=== PATIENT | male | born 1960 | race Caucasian/White ===

== ENCOUNTER 2017-01-15 11:52 | Inpatient (IN) | payer MEDICAID ==
[~2017-01-15] VITALS: Ht 175.3 cm; Wt 107.2 kg
[~2017-01-15 11:52] MED LIST: CIPR500T87; CLON-275; CLON-365; HYDR1TAB; LISI-167; LISI-167 PO; PROP40TA; [UNRECOGNIZED DRUG - CODE]; [UNRECOGNIZED DRUG - REMARK] PO
[2017-01-15] MEDS ORDERED: SODIUM CHLORIDE 0.9% 1,000ML IVBOLUS ONE ×2 (12:30→14:00)
[2017-01-15] MEDS ORDERED: THIAMINE 100 MG in SODIUM CHLORIDE 0.9% 50 ML IVPB ONE (12:30)
[2017-01-15 12:36] LABS: BLOOD UREA NITROGEN 15 mg/dL (7-18)
[2017-01-15] MEDS ORDERED: POTASSIUM CHLORIDE 20 MEQ TAB.ER.PRT PO ONE (14:00)
[2017-01-15] MEDS ORDERED: POTASSIUM CHLORIDE 20 MEQ TAB.ER.PRT ONE (14:48)
[2017-01-15] MEDS ORDERED: ONDANSETRON 2MG/ML, 2ML ONE (17:23)
[2017-01-15] MEDS ORDERED: ONDANSETRON 2MG/ML, 2ML IVPush ONE (17:30)
[2017-01-15] MEDS ORDERED: SODIUM CHLORIDE 0.9% 1,000 ML IV ONE (18:06)
[2017-01-15] MEDS ORDERED: POTASSIUM CHLORIDE 10 MEQ, MVI ADULT 10 ML, FOLIC ACID 1 MG, MAGNESIUM SULFATE 1 GM in ... IV SCH (18:24)
[2017-01-15] MEDS ORDERED: SODIUM CHLORIDE FLUSH 10ML SYR IVF PRN (18:30)
[2017-01-15] MEDS ORDERED: LORazepam 2 MG/ML, 1ML IV PRN ×2 (18:30)
[2017-01-15] MEDS ORDERED: ALUMINUM/MAG/SIMETHICONE 30 ML UDC PO PRN (18:30)
[2017-01-15] MEDS ORDERED: HEPARIN 5,000 UNITS/ML, 1ML SQ SCH (18:30)
[2017-01-15 22:00] VITALS: BP 132/80
[2017-01-15] MEDS ORDERED: SODIUM CHLORIDE 0.9% 1,000 ML IV SCH (22:30)
[2017-01-15] MEDS ORDERED: [UNRECOGNIZED DRUG - OTHER] IV SCH ×3 (23:00→23:30)
[2017-01-15] MEDS ORDERED: MVI ADULT IV SCH ×3 (23:00→23:30)
[2017-01-15] MEDS ORDERED: POTASSIUM CHLORIDE IV SCH ×3 (23:00→23:30)
[2017-01-15] MEDS ORDERED: MAGNESIUM SULFATE IV SCH ×3 (23:00→23:30)
[2017-01-15] MEDS ORDERED: FOLIC ACID IV SCH ×3 (23:00→23:30)
[2017-01-16] MEDS: POTASSIUM CHLORIDE 10 MEQ, MVI ADULT 10 ML, FOLIC ACID 1 MG, MAGNESIUM SULFATE 1 GM in ... IV SCH (00:10)
[2017-01-16 00:45] VITALS: BP 119/82
[2017-01-16] MEDS: LORazepam 2 MG/ML, 1ML IV PRN ×5 (05:02→20:33)
[2017-01-16] MEDS: ONDANSETRON 2MG/ML, 2ML IV PRN ×2 (05:02→14:38)
[2017-01-16 06:00] VITALS: BP 142/77
[2017-01-16 07:50] VITALS: BP 123/81
[2017-01-16] MEDS ORDERED: POTASSIUM CHLORIDE 10% 40 MEQ/30 ML UDC PO ONE (08:00)
[2017-01-16] MEDS: LISINOPRIL 10 MG TABLET PO SCH (08:04)
[2017-01-16] MEDS: MULTIVITAMINS/MINERALS TABLET PO SCH (08:07)
[2017-01-16] MEDS ORDERED: POTASSIUM PHOSPHATE 44 MEQ in SODIUM CHLORIDE 0.9% 500 ML IV ONE (08:30)
[2017-01-16] MEDS: THIAMINE 100MG TABLET PO SCH (10:04)
[2017-01-16] MEDS: FOLIC ACID 1 MG TABLET PO SCH (10:04)
[2017-01-16 12:44] VITALS: BP 155/95
[2017-01-16 18:11] VITALS: BP 151/78
[2017-01-16 19:30] VITALS: BP_SYST 164; BP_SYST 170; BP_DIAS 64; BP_DIAS 97
[2017-01-17] MEDS: POTASSIUM CHLORIDE 10 MEQ, MVI ADULT 10 ML, FOLIC ACID 1 MG, MAGNESIUM SULFATE 1 GM in ... IV SCH ×2 (00:24→22:45)
[2017-01-17 01:25] VITALS: BP_SYST 161; BP_SYST 162; BP_DIAS 100; BP_DIAS 95
[2017-01-17] MEDS: LORazepam 2 MG/ML, 1ML IV PRN ×7 (02:00→20:41)
[2017-01-17] MEDS: ONDANSETRON 2MG/ML, 2ML IV PRN ×3 (04:11→16:45)
[2017-01-17 05:11] LABS: ASPARTATE AMINO TRANSFERASE 57 U/L (15-37); BLOOD UREA NITROGEN 9 mg/dL (7-18)
[2017-01-17 06:34] VITALS: BP 128/84
[2017-01-17] MEDS: MULTIVITAMINS/MINERALS TABLET PO SCH (08:04)
[2017-01-17] MEDS: LISINOPRIL 10 MG TABLET PO SCH (08:04)
[2017-01-17] MEDS: THIAMINE 100MG TABLET PO SCH (08:04)
[2017-01-17] MEDS: FOLIC ACID 1 MG TABLET PO SCH (08:04)
[2017-01-17 14:25] VITALS: BP 99/64
[2017-01-17] MEDS ORDERED: POTASSIUM PHOSPHATE 22 MEQ in SODIUM CHLORIDE 0.9% 500 ML IV ONE (16:00)
[2017-01-17] MEDS ORDERED: SODIUM CHLORIDE 0.9% 1,000 ML IV SCH (16:00)
[2017-01-17 19:44] VITALS: BP 124/69
[2017-01-17 21:10] VITALS: BP 127/69
[2017-01-18 02:00] VITALS: BP 151/77
[2017-01-18] MEDS: LORazepam 2 MG/ML, 1ML IV PRN ×5 (02:27→20:30)
[2017-01-18] MEDS: ONDANSETRON 2MG/ML, 2ML IV PRN (02:28)
[2017-01-18 05:18] LABS: BLOOD UREA NITROGEN 8 mg/dL (7-18)
[2017-01-18 05:35] LABS: ASPARTATE AMINO TRANSFERASE 46 U/L (15-37)
[2017-01-18 07:46] VITALS: BP 143/92
[2017-01-18] MEDS ORDERED: POTASSIUM CHLORIDE 10% 40 MEQ/30 ML UDC PO SCH (09:00)
[2017-01-18] MEDS ORDERED: POTASSIUM CHLORIDE 10% 40 MEQ/30 ML UDC PO ONE (09:30)
[2017-01-18] MEDS: MULTIVITAMINS/MINERALS TABLET PO SCH (09:45)
[2017-01-18] MEDS: FOLIC ACID 1 MG TABLET PO SCH (09:45)
[2017-01-18] MEDS: THIAMINE 100MG TABLET PO SCH (09:45)
[2017-01-18] MEDS: LISINOPRIL 10 MG TABLET PO SCH (09:45)
[2017-01-18] MEDS ORDERED: metroNIDAZOLE 500 MG TABLET PO SCH (12:00)
[2017-01-18] MEDS ORDERED: ACETAMINOPHEN 325 MG TABLET PO ONE (14:00)
[2017-01-18 15:41] VITALS: BP 145/78
[2017-01-18 20:00] VITALS: BP 142/97
[2017-01-18] MEDS: POTASSIUM CHLORIDE 10 MEQ in SODIUM CHLORIDE 0.9% 1,000 ML IV SCH (20:19)
[2017-01-19] MEDS ORDERED: ACETAMINOPHEN 325 MG TABLET PO ONE (00:30)
[2017-01-19] MEDS: LORazepam 2 MG/ML, 1ML IV PRN (00:38)
[2017-01-19 02:00] VITALS: BP 155/83
[2017-01-19] MEDS: POTASSIUM CHLORIDE 10 MEQ in SODIUM CHLORIDE 0.9% 1,000 ML IV SCH ×3 (02:00→16:49)
[2017-01-19 04:52] LABS: BLOOD UREA NITROGEN 7 mg/dL (7-18)
[2017-01-19 04:56] LABS: ASPARTATE AMINO TRANSFERASE 37 U/L (15-37)
[2017-01-19 07:19] VITALS: BP 163/99
[2017-01-19] MEDS ORDERED: MAGNESIUM SULFATE PMX 2GM/50ML 50 ML IV ONE (07:30)
[2017-01-19] MEDS: MULTIVITAMINS/MINERALS TABLET PO SCH (08:37)
[2017-01-19] MEDS: THIAMINE 100MG TABLET PO SCH (08:37)
[2017-01-19] MEDS: FOLIC ACID 1 MG TABLET PO SCH (08:37)
[2017-01-19] MEDS: LISINOPRIL 10 MG TABLET PO SCH (08:37)
[2017-01-19] MEDS: POTASSIUM CHLORIDE 10% 40 MEQ/30 ML UDC PO SCH ×3 (09:00→21:44)
[2017-01-19] MEDS ORDERED: POTASSIUM CHLORIDE 10% 40 MEQ/30 ML UDC PO SCH (09:00)
[2017-01-19] MEDS: LORazepam 1MG TABLET PO PRN (09:14)
[2017-01-19] MEDS: ONDANSETRON 2MG/ML, 2ML IV PRN ×3 (09:33→21:42)
[2017-01-19] MEDS: MAGNESIUM OXIDE 400 MG TABLET PO SCH ×2 (09:45→21:44)
[2017-01-19] MEDS: ACETAMINOPHEN 325 MG TABLET PO PRN ×3 (09:45→21:44)
[2017-01-19 13:49] VITALS: BP 148/89
[2017-01-19] MEDS ORDERED: LORazepam 1MG TABLET ONE (15:40)
[2017-01-19] MEDS: LORazepam 0.5MG TABLET PO PRN ×2 (15:46→21:44)
[2017-01-19 19:40] VITALS: BP 163/102
[2017-01-20] VITALS (9 sets, daily range): BP systolic 123–190; BP diastolic 80–116
[2017-01-20] MEDS: POTASSIUM CHLORIDE 10 MEQ in SODIUM CHLORIDE 0.9% 1,000 ML IV SCH (02:01)
[2017-01-20] MEDS: ONDANSETRON 2MG/ML, 2ML IV PRN ×4 (03:44→21:39)
[2017-01-20] MEDS: LORazepam 0.5MG TABLET PO PRN (03:44)
[2017-01-20] MEDS: ACETAMINOPHEN 325 MG TABLET PO PRN ×4 (03:44→21:38)
[2017-01-20 05:37] LABS: BLOOD UREA NITROGEN 9 mg/dL (7-18)
[2017-01-20 05:40] LABS: ASPARTATE AMINO TRANSFERASE 24 U/L (15-37)
[2017-01-20 05:58] LABS: DIFF TOTAL CELLS COUNTED 100 CELL DIFF
[2017-01-20 06:03] LABS: POLYCHROMASIA 1+; VERIFY COUNTS? YES
[2017-01-20] MEDS: LISINOPRIL 10 MG TABLET PO SCH ×2 (08:50→15:55)
[2017-01-20] MEDS: MAGNESIUM OXIDE 400 MG TABLET PO SCH ×2 (09:10→21:37)
[2017-01-20] MEDS: FOLIC ACID 1 MG TABLET PO SCH (09:10)
[2017-01-20] MEDS: THIAMINE 100MG TABLET PO SCH (09:10)
[2017-01-20] MEDS: MULTIVITAMINS/MINERALS TABLET PO SCH (09:10)
[2017-01-20] MEDS: LORazepam 1MG TABLET PO PRN ×3 (09:44→21:38)
[2017-01-20] MEDS ORDERED: NS + 40MEQ KCL 1,000 ML IV SCH (10:00)
[2017-01-20] MEDS ORDERED: TRAZODONE 50MG TABLET PO PRN (10:30)
[2017-01-20] MEDS: NS + 40MEQ KCL 1,000 ML IV SCH (11:00)
[2017-01-20] MEDS: METOPROLOL TARTRATE 25 MG TABLET PO SCH ×2 (15:55→18:03)
[2017-01-20] MEDS ORDERED: METOPROLOL TARTRATE 25 MG TABLET PO SCH (18:00)
[2017-01-20] MEDS: POTASSIUM CHLORIDE 20 MEQ PACKET PO SCH (18:03)
[2017-01-20] MEDS ORDERED: ZIPRASIDONE 20 MG INJ IM ONE (20:00)
[2017-01-21 02:03] VITALS: BP 134/78
[2017-01-21] MEDS: LORazepam 1MG TABLET PO PRN ×2 (04:01→10:03)
[2017-01-21] MEDS: ONDANSETRON 2MG/ML, 2ML IV PRN (04:01)
[2017-01-21] MEDS: ACETAMINOPHEN 325 MG TABLET PO PRN ×2 (04:01→10:04)
[2017-01-21 05:46] LABS: BLOOD UREA NITROGEN 13 mg/dL (7-18)
[2017-01-21 05:50] LABS: ASPARTATE AMINO TRANSFERASE 16 U/L (15-37)
[2017-01-21] MEDS: METOPROLOL TARTRATE 25 MG TABLET PO SCH (05:52)
[2017-01-21] MEDS: NS + 40MEQ KCL 1,000 ML IV SCH (06:14)
[2017-01-21 06:17] LABS: DIFF TOTAL CELLS COUNTED 100 CELL DIFF
[2017-01-21 06:19] LABS: VERIFY COUNTS? YES
[2017-01-21 06:20] LABS: ANISOCYTOSIS 1+; POLYCHROMASIA 1+
[2017-01-21 06:52] VITALS: BP 177/104
[2017-01-21] MEDS: THIAMINE 100MG TABLET PO SCH (08:17)
[2017-01-21] MEDS: FOLIC ACID 1 MG TABLET PO SCH (08:17)
[2017-01-21] MEDS: POTASSIUM CHLORIDE 20 MEQ PACKET PO SCH (08:17)
[2017-01-21] MEDS: LISINOPRIL 10 MG TABLET PO SCH (08:17)
[2017-01-21] MEDS: MAGNESIUM OXIDE 400 MG TABLET PO SCH (08:17)
[2017-01-21] MEDS: MULTIVITAMINS/MINERALS TABLET PO SCH (08:17)
[2017-01-21] MEDS ORDERED: POTA20PA8 PO (08:34)
[2017-01-21] MEDS ORDERED: LISI-167 PO (08:34)
[2017-01-21] MEDS ORDERED: METO25TA35 PO (08:34)
[2017-01-21] MEDS ORDERED: MAGN400T26 PO (08:34)
[2017-01-21] MEDS ORDERED: MULT-484 PO (08:34)
[2017-01-21] MEDS ORDERED: LORA-446 PO (08:42)
[2017-01-21] MEDS ORDERED: TRAZ50TA18 PO (08:42)
[2017-01-21] MEDS ORDERED: LISINOPRIL 10 MG TABLET PO SCH ×2 (09:00)
[2017-01-21] MEDS ORDERED: NS + 40MEQ KCL 1,000 ML IV SCH (10:00)
== END 2017-01-21 10:47 | disposition home or self-care (01) | DRG 896 ==
LOC: ED 18:02 → UNDOADMIN 18:06 → EDIP 18:06 → 3NE 20:45 → EDIP 20:45 → 3NE 01-17 21:55 → 4WST 01-17 21:55 → DCLOUNGE 01-21 10:30
PROC: 0T9B70Z Drainage of Bladder with Drainage Device, Via Natural or Artificial Opening (ICD-10-PCS; principal; 2017-01-17)
DX: F10.231 Alcohol dependence with withdrawal delirium (principal); K85.90 Acute pancreatitis without necrosis or infection, unspecified; M62.82 Rhabdomyolysis; F10.221 Alcohol dependence with intoxication delirium; E87.6 Hypokalemia; I10 Essential (primary) hypertension; F41.9 Anxiety disorder, unspecified; E83.51 Hypocalcemia; E86.0 Dehydration; F17.210 Nicotine dependence, cigarettes, uncomplicated; F19.959 Other psychoactive substance use, unspecified with psychoactive substance-induced psychotic disorder, unspecified; F39 Unspecified mood [affective] disorder; Y90.8 Blood alcohol level of 240 mg/100 ml or more; K70.10 Alcoholic hepatitis without ascites; E83.39 Other disorders of phosphorus metabolism; D69.59 Other secondary thrombocytopenia; E83.42 Hypomagnesemia
CPT/HCPCS: 36415; 71010; 80048; 80053; 80076; 80307; 81003; 82040; 82550; 83690; 83735; 84100; 84132; 85025; 85610; 87324; 87493; 96365; 96375; J2405; J3411; J3475; J3480; J7042; J2060; J7030; J7040

== ENCOUNTER 2018-04-23 18:47 | Emergency (ER) | payer SELFPAY ==
[~2018-04-23] VITALS: Ht 175.3 cm; Wt 83.0 kg
[~2018-04-23 18:47] MED LIST changes: +LORA-446 PO; +MAGN400T26 PO; +METO25TA35 PO; +MULT-484 PO; +POTA20PA25 PO; +TRAZ50TA18 PO
[2018-04-23] MEDS ORDERED: ONDANSETRON 2MG/ML, 2ML IVPush ONE (19:00)
[2018-04-23] MEDS ORDERED: FAMOTIDINE 20 MG/2 ML IVP ONE (19:00)
[2018-04-23] MEDS ORDERED: SODIUM CHLORIDE 0.9% 1,000ML IVBOLUS ONE (19:00)
[2018-04-23] MEDS ORDERED: THIAMINE 100MG TABLET PO ONE (19:00)
[2018-04-23] MEDS ORDERED: THIAMINE 100MG TABLET ONE (19:12)
[2018-04-23] MEDS ORDERED: FAMOTIDINE 20 MG/2 ML ONE (19:12)
[2018-04-23] MEDS ORDERED: ONDANSETRON 2MG/ML, 2ML ONE (19:12)
[2018-04-23 19:22] LABS: BASOPHILS # (AUTO) 0.01 x10^3/uL (0-0.1); BASOPHILS % (AUTO) 0 % (0-1); EOSINOPHILS # (AUTO) 0.01 x10^3/uL (0-0.4); EOSINOPHILS % (AUTO) 0 % (1-7); LYMPHOCYTES # (AUTO) 1.37 x10^3/uL (1-3.4); LYMPHOCYTES % (AUTO) 15 % (22-44); MD NO; MEAN CORPUSCULAR HEMOGLOBIN 31.1 pg (27.5-34.5); MEAN CORPUSCULAR HGB CONC 34.3 g/dL (33.2-36.2); MEAN CORPUSCULAR VOLUME 90.7 fL (81-97); MEAN PLATELET VOLUME 8.2 fL (7.4-10.4); MONOCYTES # (AUTO) 0.58 x10^3/uL (0.2-0.8); MONOCYTES % (AUTO) 6 % (2-9); NEUTROPHILS # (AUTO) 7.14 x10^3/uL (1.8-6.8); NEUTROPHILS % (AUTO) 78 % (42-75); PLATELET COUNT 112 x10^3/uL (130-400); RED BLOOD COUNT 4.76 x10^6/uL (4.38-5.82); RED CELL DISTRIBUTION WIDTH 14.2 % (9.4-14.8)
[2018-04-23] MEDS ORDERED: KETOROLAC 30 MG/1 ML ONE (19:28)
[2018-04-23 19:29] LABS: ALBUMIN 4.4 g/dL (3.4-5.0); ANION GAP 10 mmol/L (5-15); CALCIUM 8.9 mg/dL (8.5-10.1); CHLORIDE 104 mmol/L (98-107)
[2018-04-23] MEDS ORDERED: KETOROLAC 30 MG/1 ML IVPush ONE (19:30)
[2018-04-23 19:33] LABS: ALANINE AMINOTRANSFERASE 102 U/L (12-78); ALKALINE PHOSPHATASE 85 U/L (45-117); BILIRUBIN,TOTAL 1.5 mg/dL (0.2-1.0); CREATININE 0.97 mg/dL (0.7-1.3); TOTAL PROTEIN 7.9 g/dL (6.4-8.2)
[2018-04-23] MEDS ORDERED: LORazepam 2 MG/ML, 1ML ONE (19:58)
[2018-04-23] MEDS ORDERED: LORazepam 2 MG/ML, 1ML IVPush ONE (20:00)
[2018-04-23 20:23] VITALS: BP 185/100
== END 2018-04-23 20:38 | disposition home or self-care (01) ==
LOC: ED 20:00
DX: F10.239 Alcohol dependence with withdrawal, unspecified (principal); R45.4 Irritability and anger; R11.2 Nausea with vomiting, unspecified; I10 Essential (primary) hypertension
CPT/HCPCS: 36415; 80053; 83690; 85025; 93005; 96374; 96375; 99285; J1885; J2060; J2405; J7030; S0028

== ENCOUNTER 2018-12-06 04:31 | Emergency (ER) | payer SELFPAY ==
[~2018-12-06] VITALS: Ht 172.7 cm; Wt 90.7 kg
[~2018-12-06 04:31] MED LIST changes: -CLON-365; +CLON1TAB11; -TRAZ50TA18 PO; +TRAZ50TA66 PO
--- NOTE | 2018-12-06 04:56 | NUR ---
PT PRESENTED WITH C/O BODY ACHES, COUGH X 3 WEEK. MONITORS APPLIED, SIDERAILS UP X2, CALL LIGHT WITHIN REACH. AWAITING ERP FOR EVAL AND ORDERS.
[2018-12-06] MEDS ORDERED: HYDR12.517 PO (05:06)
[2018-12-06] MEDS ORDERED: IBUP200C8 PO (05:06)
[2018-12-06] MEDS ORDERED: SERT25TA PO (05:06)
[2018-12-06] MEDS ORDERED: SIMV5TAB14 PO (05:06)
[2018-12-06 05:55] VITALS: BP 175/99
--- NOTE | 2018-12-06 06:06 | NUR ---
pt resting on gurney, denies needs, monitors in placwe, call light within reach. achart up for recheck
== END 2018-12-06 06:27 | disposition home or self-care (01) ==
LOC: ED 06:21
DX: J20.8 Acute bronchitis due to other specified organisms (principal); B34.9 Viral infection, unspecified; I10 Essential (primary) hypertension; F17.200 Nicotine dependence, unspecified, uncomplicated
CPT/HCPCS: 71045; 93005; 99283

== ENCOUNTER 2019-01-01 04:56 | Inpatient (IN) | payer MEDICAID, OTHER ==
[~2019-01-01] VITALS: Ht 175.3 cm; Wt 83.1 kg
[~2019-01-01 04:56] MED LIST changes: +HYDR12.517 PO; +IBUP200C8 PO; +SERT25TA PO; +SIMV5TAB14 PO
--- NOTE | 2019-01-01 05:10 | NUR ---
Pt presents to ed c/o wanting to detox. pt not able to amb at home and found w/ feces and urine all over myself. "i cant walk when i am drinking" states recent weiner w/ . States he typically does not drink anymore "but my wanted [place] go to the casino and it started w/ 1 beer." states hx of etoh detox w/o sz activity. pt presents mildly tachycardic and moderately tremulously. states mild nausea. denies any emesis and hallucinations/anxiety.
[2019-01-01] MEDS ORDERED: THIAMINE 100MG TABLET ONE (05:25)
[2019-01-01] MEDS ORDERED: THIAMINE 100MG TABLET PO ONE (05:30)
[2019-01-01] MEDS ORDERED: SODIUM CHLORIDE 0.9% 1,000ML IVBOLUS ONE (06:00)
[2019-01-01 06:02] LABS: ALBUMIN 3.9 g/dL (3.4-5.0); ANION GAP 12 mmol/L (5-15); CALCIUM 7.7 mg/dL (8.5-10.1); CHLORIDE 110 mmol/L (98-107); CREATININE 0.92 mg/dL (0.7-1.3)
[2019-01-01] MEDS ORDERED: LORazepam 2 MG/ML, 1ML ONE ×2 (06:03→09:16)
[2019-01-01] MEDS: LORazepam 2 MG/ML, 1ML IVPush PRN ×2 (06:10→06:29)
--- NOTE | 2019-01-01 06:11 | NUR ---
This RN attempted to clean pt and place on fresh chux. Pt effectively covered from head to toe in dried feces and dried urine. Pt placed on 2 L NC d/t pt dipping into mid 80's while asleep. IV fluids initiated and pt medicated per NOV.
[2019-01-01] MEDS ORDERED: POTASSIUM CHLORIDE 10% 40 MEQ/30 ML UDC ONE (06:22)
[2019-01-01 06:23] LABS: MEAN CORPUSCULAR HEMOGLOBIN 31.6 pg (27.5-34.5); MEAN CORPUSCULAR HGB CONC 34.5 g/dL (33.2-36.2); MEAN CORPUSCULAR VOLUME 91.6 fL (81-97); RED BLOOD COUNT 4.45 x10^6/uL (4.38-5.82); RED CELL DISTRIBUTION WIDTH 15.5 % (9.4-14.8)
--- NOTE | 2019-01-01 06:28 | NUR ---
Pt screaming into hallway "nurse" over and over. Pt reminded he has his call light. Given warm blankets per request. 2nd dose of ativan and potassium given at this time.
[2019-01-01] MEDS ORDERED: POTASSIUM CHLORIDE 10% 40 MEQ/30 ML UDC PO ONE (06:30)
[2019-01-01 06:36] LABS: MEAN PLATELET VOLUME 7.6 fL (7.4-10.4); PLATELET COUNT 52 x10^3/uL (130-400)
[2019-01-01 06:38] LABS: BASOPHILS # (AUTO) 0.03 x10^3/uL (0-0.1); BASOPHILS % (AUTO) 0 % (0-1); EOSINOPHILS # (AUTO) 0.01 x10^3/uL (0-0.4); EOSINOPHILS % (AUTO) 0 % (1-7); LYMPHOCYTES # (AUTO) 0.85 x10^3/uL (1-3.4); LYMPHOCYTES % (AUTO) 12 % (22-44); MD SCAN; MONOCYTES # (AUTO) 0.65 x10^3/uL (0.2-0.8); MONOCYTES % (AUTO) 9 % (2-9); NEUTROPHILS # (AUTO) 5.87 x10^3/uL (1.8-6.8); NEUTROPHILS % (AUTO) 79 % (42-75)
--- NOTE | 2019-01-01 06:56 | NUR ---
PT REPORT TO TOBY FORRESTER.
--- NOTE | 2019-01-01 07:00 | NUR ---
RECEIVED REPORT FROM DON CHAND RN. PT RESTING ON AGUS. AGUSTO. MONITORS REMAIN IN PLACE.
--- NOTE | 2019-01-01 07:33 | NUR ---
PT REPOSITIONED FOR COMFORT. RONALDO OCHOA AT BEDSIDE.
--- NOTE | 2019-01-01 08:07 | NUR ---
RESOURCES PROVIDED TO PT'S SPOUSE FOR SUBSTANCE ABUSE TREATMENT.
--- NOTE | 2019-01-01 08:31 | NUR ---
PT SLEEPING ON GURNEY. NADN. VSS. PT BREAKFAST TRAY LEFT AT BEDSIDE.
--- NOTE | 2019-01-01 08:58 | NUR ---
REPORT RECEIVED FROM ALFREDO FORRESTER. WITH ASSESSMENT PATIENT ALERT & ORIENTED, BUT QUITE TREMULOUS, HR OF 130. RIGHT FOREARM PIV PULLED OUT. STOOL ALL OVER LOWER END OF BED- PRODUCT DEVELOPMENT SCIENTIST ASSITED PATIENT BATHE.
[2019-01-01] MEDS ORDERED: PROMETHAZINE 25 MG/ML, 1ML ONE (09:16)
[2019-01-01] MEDS ORDERED: LORazepam 2 MG/ML, 1ML IM STA (09:29)
[2019-01-01] MEDS ORDERED: PROMETHAZINE 25 MG/ML, 1ML IM ONE (09:30)
--- NOTE | 2019-01-01 09:42 | NUR ---
Marci [phone] (home number)
[2019-01-01] MEDS ORDERED: LORazepam 2 MG/ML, 1ML IM ONE (10:00)
--- NOTE | 2019-01-01 10:45 | NUR ---
EMISSION TECHNICIAN GAVE ATIVAN 30 MINUTES TO WORK WHILE PATIENT WAS BATHED. THEN GIVEN WATER WHICH HE TOLERATED. AT THIS TIME HR TO 90-TREMORS CEASED-THEREFORE EMISSION TECHNICIAN ATTEMPTED TO AMBULATE PATIENT. DESPITE RE-DIRECTION PATIENT UNABLE TO SIT WITHOUT EXTREME TREMORS/RIGIDITY/DIZZINESS. PROVIDER MADE AWARE-TO ATTEMPT TO ADMIT. PATIENT RE-ATTACHED MONITOR/SIDE RAILS UP. TO RE-DOSE W/ ATIVAN/PLACE NEW PIV SHORTLY.
--- NOTE | 2019-01-01 11:15 | NUR ---
REPEAT DOSE OF ATIVAN GIVEN (IM), PIV STARTED, PROVIDED WITH ADDITIONAL WATER & ECG OBTAINED. ON MONITOR WITH SIDE RAILS UP. TO BE ADMITTED SHORTLY- WILL WATCH FOR BED ASSIGNMENT
--- NOTE | 2019-01-01 11:32 | NUR ---
ATTEMPTED TO CALL TO NOTIFY HER OF ADMIT. PHONE NUMBER NON FUNCTIONAL. PATIENT UPDATED
[2019-01-01 12:30] VITALS: BP 164/92
[2019-01-01 14:23] VITALS: BP 137/84
[2019-01-01] MEDS ORDERED: LORazepam 1MG TABLET PO PRN ×2 (15:00)
[2019-01-01] MEDS ORDERED: LORazepam 2 MG/ML, 1ML IV PRN ×3 (15:00)
[2019-01-01] MEDS ORDERED: THIAMINE 100MG TABLET PO SCH (15:30)
[2019-01-01] MEDS: LORazepam 1MG TABLET PO PRN (15:54)
[2019-01-01] MEDS: POTASSIUM CHLORIDE 20 MEQ, MAGNESIUM SULFATE 1 GM, FOLIC ACID 1 MG, MVI ADULT 10 ML in ... IV SCH (15:54)
[2019-01-01 16:05] VITALS: BP 164/92
[2019-01-01] MEDS ORDERED: BISACODYL 10 MG SUPP PR PRN (19:00)
[2019-01-01] MEDS ORDERED: ONDANSETRON 2MG/ML, 2ML IVPush PRN (19:00)
[2019-01-01] MEDS: NICOTINE 21 MG/24 HR PATCH.TD24 TD SCH (19:00)
[2019-01-01] MEDS: HEPARIN 5,000 UNITS/ML, 1ML SQ SCH ×2 (19:00→21:00)
[2019-01-01] MEDS ORDERED: POLYETHYLENE GLYCOL 17 GM PACKET PO PRN (19:00)
[2019-01-01 19:22] LABS: HCT (SEDRATE) 38.5 % (39.2-51.8)
[2019-01-01 19:38] LABS: FREE T4 (FREE THYROXINE) 0.96 ng/dL (0.76-1.46); THYROID STIMULATING HORMONE 2.15 mIU/L (0.358-3.740)
[2019-01-01 21:15] VITALS: BP 183/98
[2019-01-01] MEDS: LORazepam 2 MG/ML, 1ML IV PRN ×2 (21:30→23:30)
[2019-01-02 01:25] VITALS: BP 184/112
[2019-01-02] MEDS: LORazepam 2 MG/ML, 1ML IV PRN ×4 (01:25→06:21)
[2019-01-02] MEDS: ENALAPRILAT 1.25 MG/ML, 2ML IVPush PRN ×2 (01:26→03:52)
[2019-01-02 02:42] VITALS: BP 166/102
[2019-01-02 03:51] VITALS: BP 187/99
[2019-01-02] MEDS: HEPARIN 5,000 UNITS/ML, 1ML SQ SCH (05:00)
[2019-01-02 06:02] LABS: CHLORIDE 108 mmol/L (98-107)
[2019-01-02 06:08] LABS: MEAN CORPUSCULAR HEMOGLOBIN 31.2 pg (27.5-34.5); MEAN CORPUSCULAR HGB CONC 34.3 g/dL (33.2-36.2); MEAN CORPUSCULAR VOLUME 90.9 fL (81-97); MEAN PLATELET VOLUME 7.5 fL (7.4-10.4); PLATELET COUNT 55 x10^3/uL (130-400); RED CELL DISTRIBUTION WIDTH 16.7 % (9.4-14.8)
[2019-01-02 06:10] LABS: ANION GAP 16 mmol/L (5-15); CALCIUM 8.4 mg/dL (8.5-10.1); CHOL/HDL RATIO 2.1; CHOLESTEROL, TOTAL 187 mg/dL (140-239); CREATININE 0.89 mg/dL (0.7-1.3); HDL CHOL % 48 % (26-37); HDL CHOLESTEROL (DIRECT) 90 mg/dL (40-60); LDL CHOLESTEROL,CALCULATED 76 mg/dL (54-169); LDL/HDL RATIO 0.8 (0.5-3.0); TRIGLYCERIDES 103 mg/dL (50-200); VLDL CHOLESTEROL 21 mg/dL (0-25)
[2019-01-02 06:28] LABS: MD YES
[2019-01-02 06:30] LABS: BANDS%(MANUAL) 3 % (0-7); LYMPH#(MANUAL) 0.78 x10^3/uL (1-3.4); LYMPHS% (MANUAL) 12 % (22-44); MONOS#(MANUAL) 0.39 x10^3/uL (0.3-2.7); MONOS% (MANUAL) 6 % (2-9); SEG#(MANUAL) 5.14 x10^3/uL (1.8-6.8); SEGS% (MANUAL) 79 % (42-75)
[2019-01-02 06:32] LABS: <PLATELET ESTIMATE> DECREASED; <PLT MORPHOLOGY> NORMAL PLT MORPH; ANISOCYTOSIS 1+; TARGET CELLS 1+
[2019-01-02 07:33] VITALS: BP 188/99
[2019-01-02] MEDS: THIAMINE 100MG TABLET PO SCH (08:00)
[2019-01-02] MEDS: PANTOPROZOLE 40MG TABLET PO SCH (08:00)
[2019-01-02] MEDS: LORazepam 1MG TABLET PO PRN ×4 (12:01→21:53)
[2019-01-02 15:35] VITALS: BP 158/82
[2019-01-02] MEDS: POTASSIUM CHLORIDE 20 MEQ, MAGNESIUM SULFATE 1 GM, FOLIC ACID 1 MG, MVI ADULT 10 ML in ... IV SCH (15:44)
[2019-01-02] MEDS: NICOTINE 21 MG/24 HR PATCH.TD24 TD SCH (18:28)
[2019-01-02 18:40] VITALS: BP 153/77
[2019-01-02] MEDS: ZOLPIDEM 5MG TABLET PO PRN (21:52)
[2019-01-03 00:57] VITALS: BP 132/84
[2019-01-03] MEDS: LORazepam 1MG TABLET PO PRN ×4 (03:05→20:27)
[2019-01-03 04:10] LABS: CLOSTRIDIUM DIFFICILE ANTIGEN POSITIVE; CLOSTRIDIUM DIFFICILE TOXIN NEGATIVE (Negative)
[2019-01-03 05:24] LABS: MEAN CORPUSCULAR HEMOGLOBIN 31.5 pg (27.5-34.5); MEAN CORPUSCULAR HGB CONC 34.2 g/dL (33.2-36.2); MEAN CORPUSCULAR VOLUME 92.1 fL (81-97); MEAN PLATELET VOLUME 8.2 fL (7.4-10.4); PLATELET COUNT 54 x10^3/uL (130-400); RED BLOOD COUNT 4.11 x10^6/uL (4.38-5.82)
[2019-01-03 05:25] LABS: ANION GAP 9 mmol/L (5-15); CALCIUM 8.5 mg/dL (8.5-10.1); CHLORIDE 105 mmol/L (98-107); CREATININE 0.63 mg/dL (0.7-1.3)
[2019-01-03 06:18] LABS: MD SCAN
[2019-01-03 06:20] LABS: BASOPHILS # (AUTO) 0.01 x10^3/uL (0-0.1); BASOPHILS % (AUTO) 0 % (0-1); EOSINOPHILS # (AUTO) 0.01 x10^3/uL (0-0.4); EOSINOPHILS % (AUTO) 0 % (1-7); LYMPHOCYTES # (AUTO) 0.78 x10^3/uL (1-3.4); LYMPHOCYTES % (AUTO) 12 % (22-44); MONOCYTES # (AUTO) 0.65 x10^3/uL (0.2-0.8); MONOCYTES % (AUTO) 10 % (2-9); NEUTROPHILS # (AUTO) 5.36 x10^3/uL (1.8-6.8); NEUTROPHILS % (AUTO) 79 % (42-75)
[2019-01-03 06:55] VITALS: BP 163/92
[2019-01-03] MEDS: PANTOPROZOLE 40MG TABLET PO SCH (09:53)
[2019-01-03] MEDS: ACETAMINOPHEN 325 MG TABLET PO PRN ×3 (09:53→20:27)
[2019-01-03] MEDS: THIAMINE 100MG TABLET PO SCH (09:54)
[2019-01-03 13:12] VITALS: BP 162/106
[2019-01-03] MEDS ORDERED: POTASSIUM CHLORIDE 20 MEQ TAB.ER.PRT PO ONE (17:30)
[2019-01-03] MEDS: POTASSIUM CHLORIDE 20 MEQ, MAGNESIUM SULFATE 1 GM, FOLIC ACID 1 MG, MVI ADULT 10 ML in ... IV SCH (18:54)
[2019-01-03] MEDS: NICOTINE 21 MG/24 HR PATCH.TD24 TD SCH (18:54)
[2019-01-03 19:07] VITALS: BP 197/112
[2019-01-03] MEDS: ZOLPIDEM 5MG TABLET PO PRN (20:27)
[2019-01-04] VITALS (8 sets, daily range): BP systolic 153–207; BP diastolic 81–115
[2019-01-04] MEDS: ACETAMINOPHEN 325 MG TABLET PO PRN ×5 (01:21→20:17)
[2019-01-04] MEDS: LORazepam 1MG TABLET PO PRN ×6 (01:22→20:18)
[2019-01-04] MEDS: hydrALAzine 20 MG/ML, 1ML IVPush PRN (02:27)
[2019-01-04 05:10] LABS: MEAN CORPUSCULAR HEMOGLOBIN 31.4 pg (27.5-34.5); MEAN CORPUSCULAR HGB CONC 34.2 g/dL (33.2-36.2); MEAN CORPUSCULAR VOLUME 91.9 fL (81-97); MEAN PLATELET VOLUME 7.9 fL (7.4-10.4); PLATELET COUNT 93 x10^3/uL (130-400); RED BLOOD COUNT 4.42 x10^6/uL (4.38-5.82); RED CELL DISTRIBUTION WIDTH 16.1 % (9.4-14.8)
[2019-01-04 05:18] LABS: ANION GAP 10 mmol/L (5-15); CALCIUM 8.6 mg/dL (8.5-10.1); CHLORIDE 108 mmol/L (98-107); CREATININE 0.68 mg/dL (0.7-1.3)
[2019-01-04 06:08] LABS: BASOPHILS # (AUTO) 0.02 x10^3/uL (0-0.1); BASOPHILS % (AUTO) 0 % (0-1); EOSINOPHILS # (AUTO) 0.01 x10^3/uL (0-0.4); EOSINOPHILS % (AUTO) 0 % (1-7); LYMPHOCYTES # (AUTO) 1.04 x10^3/uL (1-3.4); LYMPHOCYTES % (AUTO) 13 % (22-44); MD SCAN; MONOCYTES # (AUTO) 0.76 x10^3/uL (0.2-0.8); MONOCYTES % (AUTO) 10 % (2-9); NEUTROPHILS # (AUTO) 6.02 x10^3/uL (1.8-6.8); NEUTROPHILS % (AUTO) 77 % (42-75)
[2019-01-04] MEDS: THIAMINE 100MG TABLET PO SCH (08:28)
[2019-01-04] MEDS: PANTOPROZOLE 40MG TABLET PO SCH (08:28)
[2019-01-04] MEDS: LABETALOL 5 MG/ML SYRINGE IVPush PRN (12:36)
[2019-01-04] MEDS: NICOTINE 21 MG/24 HR PATCH.TD24 TD SCH (20:17)
[2019-01-05] VITALS (9 sets, daily range): BP systolic 153–199; BP diastolic 87–119
[2019-01-05] MEDS: LORazepam 1MG TABLET PO PRN ×3 (00:55→09:50)
[2019-01-05] MEDS: ACETAMINOPHEN 325 MG TABLET PO PRN ×6 (00:55→22:10)
[2019-01-05] MEDS: hydrALAzine 20 MG/ML, 1ML IVPush PRN (03:26)
[2019-01-05 04:51] LABS: BASOPHILS % (AUTO) 0 % (0-1); EOSINOPHILS # (AUTO) 0.01 x10^3/uL (0-0.4); EOSINOPHILS % (AUTO) 0 % (1-7); LYMPHOCYTES # (AUTO) 1.09 x10^3/uL (1-3.4); LYMPHOCYTES % (AUTO) 14 % (22-44); MD NO; MEAN CORPUSCULAR HEMOGLOBIN 31.2 pg (27.5-34.5); MEAN CORPUSCULAR HGB CONC 33.9 g/dL (33.2-36.2); MEAN PLATELET VOLUME 7.3 fL (7.4-10.4); MONOCYTES # (AUTO) 0.89 x10^3/uL (0.2-0.8); MONOCYTES % (AUTO) 12 % (2-9); NEUTROPHILS # (AUTO) 5.72 x10^3/uL (1.8-6.8); NEUTROPHILS % (AUTO) 74 % (42-75); PLATELET COUNT 124 x10^3/uL (130-400); RED BLOOD COUNT 4.39 x10^6/uL (4.38-5.82); RED CELL DISTRIBUTION WIDTH 16.1 % (9.4-14.8)
[2019-01-05 04:54] LABS: ANION GAP 7 mmol/L (5-15); CALCIUM 8.8 mg/dL (8.5-10.1); CHLORIDE 104 mmol/L (98-107); CREATININE 0.79 mg/dL (0.7-1.3)
[2019-01-05] MEDS: PANTOPROZOLE 40MG TABLET PO SCH (09:49)
[2019-01-05] MEDS: THIAMINE 100MG TABLET PO SCH (09:49)
[2019-01-05] MEDS: LORazepam 0.5MG TABLET PO PRN ×3 (14:10→22:10)
[2019-01-05] MEDS: NICOTINE 21 MG/24 HR PATCH.TD24 TD SCH (22:10)
[2019-01-05] MEDS: LABETALOL 5 MG/ML SYRINGE IVPush PRN (22:29)
[2019-01-05] MEDS: ZOLPIDEM 5MG TABLET PO PRN (23:05)
[2019-01-06 00:15] VITALS: BP 155/84
[2019-01-06] MEDS: ACETAMINOPHEN 325 MG TABLET PO PRN ×2 (02:10→06:18)
[2019-01-06] MEDS: LORazepam 0.5MG TABLET PO PRN ×2 (02:10→06:18)
[2019-01-06 05:54] LABS: BASOPHILS # (AUTO) 0.02 x10^3/uL (0-0.1); BASOPHILS % (AUTO) 0 % (0-1); EOSINOPHILS # (AUTO) 0.02 x10^3/uL (0-0.4); EOSINOPHILS % (AUTO) 0 % (1-7); LYMPHOCYTES # (AUTO) 1.07 x10^3/uL (1-3.4); LYMPHOCYTES % (AUTO) 14 % (22-44); MD NO; MEAN CORPUSCULAR HEMOGLOBIN 31.2 pg (27.5-34.5); MEAN CORPUSCULAR VOLUME 91.7 fL (81-97); MEAN PLATELET VOLUME 7.6 fL (7.4-10.4); MONOCYTES # (AUTO) 1.02 x10^3/uL (0.2-0.8); MONOCYTES % (AUTO) 13 % (2-9); NEUTROPHILS # (AUTO) 5.59 x10^3/uL (1.8-6.8); NEUTROPHILS % (AUTO) 72 % (42-75); PLATELET COUNT 175 x10^3/uL (130-400); RED BLOOD COUNT 4.27 x10^6/uL (4.38-5.82); RED CELL DISTRIBUTION WIDTH 16.9 % (9.4-14.8)
[2019-01-06 07:21] VITALS: BP 186/104
[2019-01-06] MEDS: PANTOPROZOLE 40MG TABLET PO SCH (07:30)
[2019-01-06 07:44] LABS: ANION GAP 9 mmol/L (5-15); CHLORIDE 101 mmol/L (98-107); CREATININE 0.73 mg/dL (0.7-1.3)
[2019-01-06] MEDS: THIAMINE 100MG TABLET PO SCH (09:00)
== END 2019-01-06 10:37 | disposition left against medical advice (07) | DRG 641 ==
LOC: ED 10:45 → EDIP 10:46 → ED 11:44 → 4EST 12:11
PROVIDERS: ADMIT Hospitalist; ATTEND Hospitalist
DX: E87.6 Hypokalemia (principal); F10.231 Alcohol dependence with withdrawal delirium; R25.3 Fasciculation; I10 Essential (primary) hypertension; F41.9 Anxiety disorder, unspecified; R32 Unspecified urinary incontinence; E78.5 Hyperlipidemia, unspecified; D69.59 Other secondary thrombocytopenia; Z53.21 Procedure and treatment not carried out due to patient leaving prior to being seen by health care provider; Y90.9 Presence of alcohol in blood, level not specified; D69.6 Thrombocytopenia, unspecified; Z87.891 Personal history of nicotine dependence
CPT/HCPCS: 36415; 80048; 80061; 80307; 82040; 83690; 84439; 84443; 85025; 85651; 87324; 87493; 93005; 96361; 96372; 96374; 99285; G0378; J1644; J2405; J2550; J3475; J3480; J0360; J2060; J7030